=== PATIENT | female | born 1950 | race Two or more races ===

== ENCOUNTER → 2016-08-03 | Outpatient (CLI) | payer MEDICARE, OTHER ==
[~2016-08-03] MED LIST: PROP10TA6 PO; ZOLP10TA PO
--- NOTE | 2016-08-03 15:33 | RADRPT ---
PROCEDURE: Right knee radiographs. CLINICAL INDICATION: Right knee pain. TECHNIQUE: Four views. Weight bearing. Frontal, lateral, oblique, and patellar view. COMPARISON: No prior studies are available for comparison. FINDINGS: There is no fracture or dislocation. There is a joint effusion. There are degenerative changes with osteophytes arising from all 3 joint compartment margins. There is lateral joint compartment narrowing. There is no lytic or blastic lesion. There is no radiopaque foreign body. IMPRESSION: 1. Moderate degenerative changes of the right knee. 2. Joint effusion. 3. Otherwise unremarkable study. RPTAT: QQ .Rafita Cabezas MD, MD Date Time Electronically viewed and signed by .Rafita Caebzas MD, MD on 08/03/2016 15:33 .R/
== END | disposition home or self-care (01) ==
LOC: HKI 13:18
PROVIDERS: ATTEND Orthopaedic Surgery
DX: M17.11 Unilateral primary osteoarthritis, right knee (principal); M25.561 Pain in right knee
CPT/HCPCS: 20610; 73564; G0463; J1030